=== PATIENT | female | born 1945 | race Caucasian/White ===

== ENCOUNTER → 2025-05-18 13:13 | Outpatient (BNVA) | payer MEDICARE, OTHER, SELFPAY | PROVIDERS: Family Provider Family Medicine; PCP Family Medicine; Visit Provider Nurse Practitioner Family | DX: L72.11 Pilar cyst (principal); L57.8 Other skin changes due to chronic exposure to nonionizing radiation; L81.4 Other melanin hyperpigmentation; L82.1 Other seborrheic keratosis; Z08 Encounter for follow-up examination after completed treatment for malignant neoplasm; Z85.828 Personal history of other malignant neoplasm of skin; D48.5 Neoplasm of uncertain behavior of skin | CPT/HCPCS: 11102; 99203 ==

== ENCOUNTER → 2025-06-09 08:25 | Outpatient (BNVA) | payer MEDICARE, OTHER, SELFPAY | PROVIDERS: Family Provider Family Medicine; PCP Family Medicine; Visit Provider Dermatology | DX: C44.92 Squamous cell carcinoma of skin, unspecified (principal); C44.319 Basal cell carcinoma of skin of other parts of face; L82.1 Other seborrheic keratosis; L57.0 Actinic keratosis | CPT/HCPCS: 17000; 99214 ==

== ENCOUNTER 2025-06-13 15:25 | Outpatient (CLI) | payer MEDICARE, OTHER, SELFPAY ==
[2025-06-13 15:54] LABS: Hematocrit 45.7 % (36-47); Hemoglobin 14.70 g/dL (11.27-16.99); Mean Corpuscular HGB Conc 32.2 g/dL (30-55); Mean Corpuscular Hemoglobin 29.6 pg (27-33); Mean Corpuscular Volume 92.1 fl (85-98); Nucleated Red Blood Cells % 0 %; Platelet Count 220 10^3/cmm (157-399); Red Blood Count 4.96 10^6/uL (3.85-5.65); White Blood Count 6.89 10^3/uL (3.29-11.43)
[2025-06-13 16:28] LABS: Alanine Aminotransferase 10 U/L (0-33); Albumin Level 3.6 g/dL (3.5-5.2); Alkaline Phosphatase 26 U/L (35-105); Anion Gap 18.6 (5-19); Aspartate Amino Transferase 14 U/L (0-32); Blood Urea Nitrogen 20 mg/dL (8-23); Calcium 8.8 mg/dL (8.5-10.5); Carbon Dioxide 19 mmol/L (22-29); Chloride 105 mmol/L (98-107); Globulin 3.4 g/dL (1.3-4.6); Glucose 106 mg/dL (65-115); Osmolality Calculated 291 mOsm/kg (285-295); Potassium 3.6 mmol/L (3.5-5.1); Sodium 139 mmol/L (136-145); Total Protein 7.0 g/dL (6.6-8.7)
[2025-06-13 16:31] LABS: Estmated Average Glucose 120; Hemoglobin A1C 5.8 % (4.0-6.0)
== END 2025-06-13 15:26 | disposition home or self-care (01) ==
PROVIDERS: Family Provider Family Medicine; PCP Family Medicine; Visit Provider Specialist
DX: Z01.818 Encounter for other preprocedural examination (principal); Z13.1 Encounter for screening for diabetes mellitus; I44.4 Left anterior fascicular block
CPT/HCPCS: 36415; 80053; 83036; 85025; 93005

== ENCOUNTER 2025-06-14 08:53 | Day surgery (SDC) | payer MEDICARE, OTHER, SELFPAY ==
[2025-06-14] VITALS (11 sets, daily range): BP systolic 154–214; BP diastolic 67–127; PULSE 63–73; RESP 16–18; TEMP 36.1–36.6; O2SAT 94–98; BMI 39.8
--- NOTE | 2025-06-14 09:20 | W.PM.OPSUD ---
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
--- NOTE | 2025-06-14 10:15 | ANES.PREANE2 ---
Pre-Anesthetic Assessment Height/Weight: Height 5 ft 4 in Weight 232 lb Temp Pulse Resp BP Pulse Ox O2 Del Method 97.0 F L 63 18 180/72 98 Room Air 06/14/25 10:03 06/14/25 10:03 06/14/25 10:03 06/14/25 10:05 06/14/25 10:03 06/14/25 10:03 Preop Diagnosis: Skin cancer Operation Date: 06/14/25 09:05 Proposed Procedures p Excision Facial/Scalp Mass/Lesion(Left) - Julius Cee MD s Full thickness graft with Skin graft reconstruction(Left) - Julius Cee MD Was Beta Adryan taken within 24 hours: N/A Was Clonidine taken within 24 hours: N/A Last intake: Intake Last Liquid Date 06/13/25 Last Liquid Time 23:00 Last Solid Date 06/13/25 Last Solid Time 20:00 Social No alcohol and No tobacco Exam alert, oriented x 3 and clear to auscultation bilaterally Systolic ejection flow murmur over left sternal border Airway Submandibular: within normal limits Cervical ROM: within normal limits Mallampati: Class III Dentition: false Anesthetic Plan ASA status: 3 Anesthesia: General Other: No prior issues with anesthesia NPO since yesterday evening History of MERLYN, normally wears CPAP but is unable due to face lesion Patient has a history of hypertension on losartan. Last taken yesterday however initial BP was 200s systolic. Repeat BP 180/72. Patient is extremely nervous and states she gets whitecoat syndrome Recent labs reviewed and acceptable for procedure EKG showing sinus rhythm with left anterior fascicular block Systolic ejection murmur heard over the left sternal border. Patient states that this has been present for a long time. States she is able to ambulate without SOB Plan for general anesthesia Medications/Allergies Home Medications ?Medication ?Instructions ?Recorded ?Confirmed ?Last Taken ?Type dapagliflozin propanediol 10 mg 10 mg PO DAILY 06/14/25 06/14/25 06/13/25 History tablet (Farxiga) furosemide 40 mg tablet 40 mg PO DAILY 06/14/25 06/14/25 06/13/25 History losartan 25 mg tablet 25 mg PO DAILY 06/14/25 06/14/25 06/14/25 History mupirocin 2 % topical ointment 1 applic topical BID 06/14/25 06/14/25 06/13/25 History potassium chloride 10 mEq 10 meq PO DAILY 06/14/25 06/14/25 06/13/25 History tablet,extended release Allergies Allergy/AdvReac Type Severity Reaction Status Date / Time acetaminophen (From Percocet) Allergy ADR-Halluci Verified 06/14/25 09:19 nating oxycodone (From Percocet) Allergy ADR-Halluci Verified 06/14/25 09:19 nating PFSH Anesthesia Social History Smoking and tobacco/nicotine status: never used tobacco/nicotine
[2025-06-14] MEDS: lidocaine-epi 1% 20 mL INJ INJECTION ×2 (10:57→11:12)
[2025-06-14] MEDS: neomycin-poly-bacitracin oint 28 gm 1 APPLIC TOPICAL (10:57)
--- NOTE | 2025-06-14 12:12 | P.OP_ITS ---
Operative Report Date of procedure: June 14, 2025 Pre-op diagnosis: 1) Large squamous cell carcinoma of the left cheek skin 2) Basal cell carcinoma of the right lateral brow Post-op diagnosis: Same Post-op findings: 1) 5cm exophytic lesion of the left malar cheek 2) 1X2 cm atypical lesion of the right lateral brow Procedure done: 1) Excision of 5cm left cheek skin squamous cell carcinoma with inveriorly based advancement flap reconstruction 2) Excision with primary closure of right lateral brow basal cell carcinoma Implants: None Specimens removed/disposition: 1) Left cheek squamous cell carcinoma with margins 2) Right lateral brow basal cell carcinoma Pathology: 1) Left cheek squamous cell carcinoma with margins 2) Right lateral brow basal cell carcinoma Surgeon: Julius Cee MD [employer] Con[employer]ement System Manager: Aleksander Gómez [employer] Confinement System Manager: Yohana De Leon Estimated blood loss: 5mL IV fluids: 700mL Complications: None Findings: 1) Large, exophytic mass of the left cheek 2) Atypical lesion of the right lateral brow Brief History: 79 yo wf with a h/o an enlarging left cheek squamous cell carcinoma and right lateral brow basal cell carcinoma who desires surgical therapy. Procedure: The patient was identified in the preop holding area and was taken to the operating room where she was placed on the operating table in the supine position. Anesthesia was obtained with general endotracheal anesthesia and the table was turned 120 degrees to the right. The left cheek and right lateral brow lesions were identified and injected with local anesthesia. The patient was then prepped and draped in the usual sterile fashion. The right lateral brow lesion was addressed by excising it with a 15 blade and sharp scissors via an elliptical incision. The specimen was marked and sent for permanent section pathologic analysis. Hemostasis was then achieved with electrocautery and the right lateral brow wound was closed with interrupted 5-0 Monocryl suture subcu and a running 5-0 Prolene on skin. Attention was then turned to the left cheek lesion - the left cheek lesion was then excised with a 1 cm margin of normal appearing tissue using a 15 blade and sharp scissors. Another 5 mm margin was taken around the excision site as margins that were divided up into quadrants - the margins were sent for frozen section analysis which were all reported as clear with no evidence of residual malignancy. At this point an inferiorly based flap was designed that extended from the upper edge of the excision site to the left preauricular crease down into the neck along the patient's left relaxed skin tension lines in the neck and preauricular area. Once raised with a pair of metzenbaum scissors, his flap was then incised with a 15 blade was raised with Metzenbaum scissors. Once the flap was fully elevated and undermined it was advanced to fill the surgical defect after hemostasis had been achieved electrocautery. At this point the wound was closed with interrupted 4- 0 Monocryl sutures in subcu and a running 5-0 Prolene on skin. At this point the wound was cleaned and covered with triple antibiotic ointment. The procedure was then terminated and control of the patient was returned to anesthesia where she underwent an uneventful reversal of anesthesia and extubation and was taken to the recovery room in stable condition. There were no operative or anesthetic complications
--- NOTE | 2025-06-14 13:45 | ANE.PACU2 ---
Inpatient post-anesthesia follow up: Airway intact: Yes Vital signs: Temperature 97.8 F Pulse Rate 72 Respiratory Rate 16 Blood Pressure 185/71 Pulse Oximetry 95 Oxygen Delivery Me thod Room Air Oxygen Flow Rate Fraction of Inspir ed Oxygen Hydration adequate: Yes Nausea and vomiting: No Pain level: 1 Mental status: Baseline
== END 2025-06-14 13:45 | disposition home or self-care (01) ==
PROVIDERS: Family Provider Family Medicine; PCP Family Medicine; Visit Provider Specialist
PROC: (CPT 11646; principal; 2025-06-14 08:55)
PROC: (CPT 11646; 2025-06-14 08:55)
DX: C44.91 Basal cell carcinoma of skin, unspecified (principal); C44.92 Squamous cell carcinoma of skin, unspecified; L57.8 Other skin changes due to chronic exposure to nonionizing radiation; D04.8 Carcinoma in situ of skin of other sites; G47.33 Obstructive sleep apnea (adult) (pediatric); I10 Essential (primary) hypertension
CPT/HCPCS: 11646; 15240; 88304; J1100; J2405; J2704; J3010; J3490; J7030; J9999

== ENCOUNTER 2025-06-14 13:12 | Outpatient (CLI) | payer MEDICARE, OTHER, SELFPAY ==
--- NOTE | 2025-06-14 13:23 | CT_ITS ---
WS: [id number] CT NECK TECHNIQUE: Contrast-enhanced CT of the neck with coronal and sagittal reformatted images. CLINICAL INFORMATION: SQUAMOUS CELL CARCINOMA OF SKIN OF CHEEK COMPARISON: None. DLP: 221.[address] scans at [facility] use at least one of these dose optimization techniques: automated exposure control; mA and/or kV adjustment per patient size (includes targeted exams where dose is matched to clinical indication); or iterative reconstruction. FINDINGS: Postop changes earlier today for LEFT facial skin cancer resection. Expected postoperative changes with scattered pockets of air in the subcutaneous soft tissue extending over the LEFT face and neck. No evidence of drainable abscess or fluid collection. Parotid glands are normal. Normal submandibular glands. No evidence of supraglottic or glottic mass. Normal posterior nasopharynx and parapharyngeal fat. Normal [place] tonsils. Multinodular thyroid goiter with masslike enlargement of the isthmus and RIGHT thyroid. Largest nodules measure up to 3 cm. This can be further evaluated with ultrasound. Mild mass effect on the trachea at the thoracic inlet which remains patent. Paranasal sinuses and mastoid air cells are well aerated. Moderate to advanced spondylitic changes cervical spine. Lung apices are well aerated. Moderate bilateral carotid bulb calcification. CT/CT neck w con* [id number] IMPRESSION: 1. Expected postoperative changes from LEFT facial skin cancer resection earli er today. Associated scattered subcutaneous air over the LEFT face and neck. 2. No evidence of drainable abscess or fluid collection. 3. No cervical lymphadenopathy. 4. Multinodular enlarged thyroid worse involving the isthmus and RIGHT thyroid probably multinodular goiter. This could be further evaluated with ultrasound
[2025-06-14] MEDS: iohexol 350 mg/mL 500 mL Btl (per mL) IV (13:39)
== END 2025-06-14 13:13 | disposition home or self-care (01) ==
LOC: RAD 13:14
PROVIDERS: Family Provider Family Medicine; PCP Family Medicine; Visit Provider Specialist
DX: C44.329 Squamous cell carcinoma of skin of other parts of face (principal); C44.319 Basal cell carcinoma of skin of other parts of face
CPT/HCPCS: 70491

== ENCOUNTER 2025-09-19 07:59 | Outpatient (CLI) | payer MEDICARE, OTHER, SELFPAY ==
--- NOTE | 2025-09-19 08:25 | NM_ITS ---
WS: [id number] NUCLEAR MEDICINE 24 HOUR I-123 THYROID UPTAKE INDICATION: Multinodular goiter TECHNIQUE: I-123 24 HOUR THYROID UPTAKE WITH PLANAR IMAGING. 145.8 UCI TRELL 123 COMPARISON: CT neck 06/14/2025 FINDINGS: Relatively symmetric radiotracer uptake with bilateral thyroid nodularity corresponding to the multinodular goiter seen on the prior CT. Somewhat decreased activity in the RIGHT lower pole nodule. This could be further evaluated with ultrasound and possible FNA. 24-hour thyroid uptake 11.98% NORMAL 24H THRYOID UPTAKE 8-35% NM/NM thyroid uptake multi [id number] IMPRESSION: 1. 24-hour thyroid uptake 11.98% within normal limits 2. Slightly decreased activity (cold nodule) RIGHT lower pole. This can be fur ther evaluated with ultrasound and possible FNA
== END 2025-09-19 08:00 | disposition home or self-care (01) ==
PROVIDERS: PCP Family Medicine; Visit Provider Specialist
DX: E05.90 Thyrotoxicosis, unspecified without thyrotoxic crisis or storm (principal); E04.2 Nontoxic multinodular goiter
CPT/HCPCS: 78014; A9516